=== PATIENT | female | born 1980 | race Asian ===

== ENCOUNTER 2018-10-01 10:54 | Emergency (ER) | payer SELFPAY ==
[~2018-10-01] VITALS: Ht 157.5 cm; Wt 71.0 kg
[2018-10-01] MEDS ORDERED: FAMOTIDINE 20MG/2ML VIAL IV STA (13:40)
[2018-10-01] MEDS ORDERED: ONDANSETRON HCL 4MG/2ML INJ IV STA (13:40)
[2018-10-01 14:26] LABS: BASOPHILS % 0.6 % (0.0-2.0); HEMATOCRIT. 34.1 % (36.0-48.0); HEMOGLOBIN. 11.6 g/dL (12.0-16.0); LYMPHOCYTES % 9.2 % (20.0-50.0); MEAN CORPUSCULAR HEMOGLOBIN 27.7 pg (28.0-32.0); MEAN CORPUSCULAR VOLUME 81.5 fL (81.0-99.0); MEAN PLATELET VOLUME 8.8 fl (7.4-10.4); MONOCYTES % 7.3 % (2.0-8.0); NEUTROPHILS % 81.9 % (40.0-76.0); PLATELET 309 x1000/uL (130-400); RED BLOOD CELL COUNT 4.19 mill/uL (4.2-5.4); RED CELL DISTRIBUTION WIDTH 14.3 % (11.6-14.6)
[2018-10-01 14:32] LABS: CHLORIDE 107 mEq/L (98-107)
[2018-10-01 14:42] LABS: CLARITY URINE CLEAR (CLEAR); COLOR URINE YELLOW (YELLOW); KETONES URINE NEGATIVE (NEGATIVE); LEUKOCYTE ESTERASE URINE 2+ (NEGATIVE); NITRITE URINE NEGATIVE (NEGATIVE); OCCULT BLOOD URINE 3+ (NEGATIVE); PH URINE 6.5 (4.5-8.0); PROTEIN URINE NEGATIVE (NEGATIVE)
[2018-10-01 15:03] LABS: HCG SCREEN NEGATIVE
[2018-10-01 16:30] VITALS: BP 134/76
== END 2018-10-01 16:30 | disposition home or self-care (01) ==
LOC: ER 10:54
DX: K80.50 Calculus of bile duct without cholangitis or cholecystitis without obstruction (principal); N39.0 Urinary tract infection, site not specified; K21.9 Gastro-esophageal reflux disease without esophagitis
CPT/HCPCS: 36415; 76705; 80053; 81003; 81025; 83690; 84703; 85025; 85610; 96374; 96375; 99284; J2405; J3490; Z7610